=== PATIENT | male | born 1965 | race Caucasian/White ===

== ENCOUNTER 2019-05-16 10:55 | Inpatient (IN) | payer OTHER ==
[2019-05-16 12:56] VITALS: BMI 26.4
--- NOTE | 2019-05-16 16:58 | HP ---
CIWA Score - Admission Criteria [facility] Guidelines: Admission for Medically Managed Detox: Requires at least one of the followin. CIWA greater than 12 2. Seizures within the past 24 hours 3. Delirium tremens within the past 24 hours 4. Hallucinations within the past 24 hours 5. Acute intervention needed for co occurring medical disorder 6. Acute intervention needed for co occurring psychiatric disorder 7. Severe withdrawal that cannot be handled at a lower level of care (continued vomiting, continued diarrhea, abnormal vital signs) requiring intravenous medication and/or fluids 8. Admission ROS [facility] - HPI Chief Complaint: cocaine rehab Allergies/Adverse Reactions: Allergies Allergy/AdvReac Type Severity Reaction Status Date / Time No Known Allergies Allergy Verified 05/16/19 12:51 History of Present Illness: Patient is a 53 yo M with a PMHx of Asthma, depression, anxiety, presenting here cocaine rehab. smokes 10 bags of cocaine daily (100 dollars) for 3 months. Says he smoked cocaine in 1980 for about a year and has been clean since then. Never did rehab before. Denies other drugs. smokes 10 cigarettes a day. unemployed. lives with his sister in an apartment. - Ebola screening Have you traveled outside of the country in the last 21 days: No Have you had contact with anyone from an Ebola affected area: No - Review of Systems Constitutional: Loss of Appetite, Unintentional Wgt. Loss Respiratory: denies: Cough, Shortness of Breath Cardiac: denies: Chest Pain Patient History - Smoking Cessation Smoking history: Current every day smoker Initiated information on smoking cessation: Yes 'Breaking Loose' booklet given: 05/16/19 - Substances abused Crack Substance route: Smoking Frequency: Daily Amount used: 10BAGS Age of first use: 18 Date of last use: 05/15/19 Family Disease History - Family Disease History Family History: Denies Admission Physical Exam [facility] - Vital Signs Vital Signs: Vital Signs - 24 hr 05/16/19 12:46 Temperature 97.3 F L Pulse Rate 76 Respiratory 18 Rate Blood Pressure 126/85 - Physical General Appearance: Yes: No Apparent Distress HEENTM: Yes: Normocephalic Respiratory: Yes: No Respiratory Distress, No Accessory Muscle Use Cardiology: Yes: Regular Rhythm, Regular Rate Abdominal: Yes: Non Tender, Soft Extremities: No: Swelling - Diagnostic (1) Cocaine abuse Current Visit: Yes Status: Acute (2) Tobacco abuse Current Visit: Yes Status: Acute Cleared for Admission S - Detox or Rehab [facility] Level of Care: Medically Managed Breathalyzer - Breathalyzer Breathalyzer: 0 Urine Drug Screen - Test Device Lot number: [id number] Expiration date: 01/27/21 - Control Is test valid?: Yes - Results Drug screen NEGATIVE: No Urine drug screen results: TONO-Cocaine Inpatient Rehab Admission - Rehab Decision to Admit Inpatient rehab admission?: Yes - Initial Determination Are CD services needed?: Yes Free of communicable disease: Yes Not in need of hospitalization: Yes - Rehab Admission Criteria Previous failed treatment: No Poor recovery environment: No Comorbidities: No Lacks judgement: No Patient is meeting Inpatient Rehab admission criteria:: Yes
--- NOTE | 2019-05-16 17:03 | PN ---
Teaching Attending Note Name of Resident: Ce Glez ATTENDING PHYSICIAN STATEMENT I saw and evaluated the patient. I reviewed the resident's note and discussed the case with the resident. I agree with the resident's findings and plan as documented. SUBJECTIVE: 53 yo with cocaine use disorder, says he has only been using for 3months, has not been using since 1980. Wants help to stop using OBJECTIVE: Vital Signs - 24 hr 05/16/19 12:46 Temperature 97.3 F L Pulse Rate 76 Respiratory 18 Rate Blood Pressure 126/85 alert and oriented ASSESSMENT AND PLAN: cocaine use disorder-- rehab pt is motivated to stop
[2019-05-16] MEDS ORDERED: guaiFENesin 200 MG/10 ML 10 ML UNIT-DOSE CUPS PO PRN (17:09)
[2019-05-16] MEDS ORDERED: MAGNESIUM HYDROX 2400MG/30ML ORAL SUSPENSION 30 ML CUP PO PRN (17:09)
[2019-05-16] MEDS ORDERED: ACETAMINOPHEN 325 MG TABLET (FP) PO PRN (17:09)
[2019-05-16] MEDS ORDERED: MENTHOL/PHENOL 1 EACH UD MM PRN (17:09)
[2019-05-16] MEDS ORDERED: MAGNESIUM CITRATE 300 ML BOTTLE PO PRN (17:09)
[2019-05-16] MEDS ORDERED: P-EPHED 60MG/TRIPROLIDI 2.5MG TABLET PO PRN (17:09)
[2019-05-16] MEDS ORDERED: IBUPROFEN 400 MG TABLET (FP) PO PRN (17:09)
[2019-05-16] MEDS: NICOTINE 14 MG/24 HOURS TOPICAL PATCH TD SCH (21:45)
[2019-05-16] MEDS: THIAMINE HCL 100 MG TABLET (FP) PO SCH (21:46)
[2019-05-17] MEDS: NICOTINE 14 MG/24 HOURS TOPICAL PATCH TD SCH (09:44)
[2019-05-17] MEDS: PRENATAL VITAMINS W/ FOLIC ACID TABLET (FP) PO SCH (09:44)
[2019-05-17] MEDS: LIDOCAINE 5% TOPICAL PATCH TP SCH (10:44)
[2019-05-17 11:34] LABS: PH,URINE 5.5 (5.0-8.0); URINE APPEARANCE CLEAR; URINE BILIRUBIN NEGATIVE (NEGATIVE); URINE COLOR YELLOW; URINE GLUCOSE (UA) NEGATIVE (NEGATIVE); URINE KETONE NEGATIVE (NEGATIVE); URINE LEUK ESTERASE NEGATIVE (NEGATIVE); URINE NITRITE NEGATIVE (NEGATIVE); URINE PROTEIN NEGATIVE (NEGATIVE); URINE UROBILINOGEN 0.2 mg/dL (0.2-1.0)
[2019-05-17 11:39] LABS: HEMATOCRIT 46.7 % (35.4-49); HEMOGLOBIN 15.6 GM/dL (11.7-16.9); MCH 31.2 pg (25.7-33.7); MCHC 33.4 g/dl (32.0-35.9); MEAN CELL VOLUME 93.2 fl (80-96); MEAN PLT VOLUME 10.3 fl (7.5-11.1); PLATELET COUNT 189 K/MM3 (134-434); RDW 13.5 % (11.9-15.9); WHITE BLOOD COUNT 6.1 K/mm3 (4.0-10.0)
[2019-05-17 11:45] LABS: ALBUMIN 3.5 g/dl (3.4-5.0); BILIRUBIN,TOTAL 0.3 mg/dL (0.2-1); CALCIUM 9.3 mg/dL (8.5-10.1); CREATININE 1.2 mg/dL (0.55-1.3); POTASSIUM 3.7 mmol/L (3.5-5.1); TOT PROT 6.8 g/dl (6.4-8.2)
[2019-05-17] MEDS: MELATONIN 5 MG TABLETS PO PRN (21:33)
[2019-05-17] MEDS: LIDOCAINE PATCH REMOVAL MC SCH (21:33)
[2019-05-17] MEDS: THIAMINE HCL 100 MG TABLET (FP) PO SCH (21:33)
[2019-05-18] MEDS: LIDOCAINE 5% TOPICAL PATCH TP SCH (10:48)
[2019-05-18] MEDS: PRENATAL VITAMINS W/ FOLIC ACID TABLET (FP) PO SCH (10:48)
[2019-05-18] MEDS: NICOTINE 14 MG/24 HOURS TOPICAL PATCH TD SCH (10:48)
[2019-05-18] MEDS: LIDOCAINE PATCH REMOVAL MC SCH (21:05)
[2019-05-18] MEDS: THIAMINE HCL 100 MG TABLET (FP) PO SCH (21:05)
[2019-05-18] MEDS: MELATONIN 5 MG TABLETS PO PRN (21:05)
[2019-05-18] MEDS ORDERED: PT OWN MED DRAWER 7, Y5N ONE (23:29)
[2019-05-19] MEDS: NICOTINE 14 MG/24 HOURS TOPICAL PATCH TD SCH (09:38)
[2019-05-19] MEDS: LIDOCAINE 5% TOPICAL PATCH TP SCH (09:38)
[2019-05-19] MEDS: PRENATAL VITAMINS W/ FOLIC ACID TABLET (FP) PO SCH (09:38)
[2019-05-19] MEDS: LIDOCAINE PATCH REMOVAL MC SCH (21:32)
[2019-05-19] MEDS: THIAMINE HCL 100 MG TABLET (FP) PO SCH (21:32)
[2019-05-19] MEDS: MELATONIN 5 MG TABLETS PO PRN (21:33)
[2019-05-20] MEDS: PRENATAL VITAMINS W/ FOLIC ACID TABLET (FP) PO SCH (10:52)
[2019-05-20] MEDS: LIDOCAINE 5% TOPICAL PATCH TP SCH (10:52)
[2019-05-20] MEDS: NICOTINE 14 MG/24 HOURS TOPICAL PATCH TD SCH (10:52)
[2019-05-20] MEDS: LIDOCAINE PATCH REMOVAL MC SCH (21:03)
[2019-05-20] MEDS: THIAMINE HCL 100 MG TABLET (FP) PO SCH (21:03)
[2019-05-20] MEDS: MELATONIN 5 MG TABLETS PO PRN (21:04)
[2019-05-21] MEDS: NICOTINE 14 MG/24 HOURS TOPICAL PATCH TD SCH (09:27)
[2019-05-21] MEDS: LIDOCAINE 5% TOPICAL PATCH TP SCH (09:27)
[2019-05-21] MEDS: PRENATAL VITAMINS W/ FOLIC ACID TABLET (FP) PO SCH (09:43)
[2019-05-21] MEDS: THIAMINE HCL 100 MG TABLET (FP) PO SCH (21:30)
[2019-05-21] MEDS: MELATONIN 5 MG TABLETS PO PRN (21:30)
[2019-05-21] MEDS: LIDOCAINE PATCH REMOVAL MC SCH (21:30)
[2019-05-22] MEDS: PRENATAL VITAMINS W/ FOLIC ACID TABLET (FP) PO SCH (09:40)
[2019-05-22] MEDS: NICOTINE 14 MG/24 HOURS TOPICAL PATCH TD SCH (09:40)
[2019-05-22] MEDS: LIDOCAINE 5% TOPICAL PATCH TP SCH (09:40)
[2019-05-22] MEDS: THIAMINE HCL 100 MG TABLET (FP) PO SCH (21:01)
[2019-05-22] MEDS: LIDOCAINE PATCH REMOVAL MC SCH (21:02)
[2019-05-22] MEDS: MELATONIN 5 MG TABLETS PO PRN (21:02)
[2019-05-23] MEDS: MAG HYDROX/AL HYDROX/SIMETH 30 ML UNIT-DOSE CUP PO PRN (06:04)
[2019-05-23] MEDS: LIDOCAINE 5% TOPICAL PATCH TP SCH (09:04)
[2019-05-23] MEDS: LOPERAMIDE HCL 2 MG CAPSULE PO PRN ×2 (09:04→16:42)
[2019-05-23] MEDS: PRENATAL VITAMINS W/ FOLIC ACID TABLET (FP) PO SCH (09:04)
[2019-05-23] MEDS: NICOTINE 14 MG/24 HOURS TOPICAL PATCH TD SCH (09:51)
[2019-05-23] MEDS: LIDOCAINE PATCH REMOVAL MC SCH (21:41)
[2019-05-23] MEDS: THIAMINE HCL 100 MG TABLET (FP) PO SCH (21:41)
[2019-05-23] MEDS: MELATONIN 5 MG TABLETS PO PRN (21:41)
[2019-05-24] MEDS: MAG HYDROX/AL HYDROX/SIMETH 30 ML UNIT-DOSE CUP PO PRN (01:23)
[2019-05-24] MEDS: PRENATAL VITAMINS W/ FOLIC ACID TABLET (FP) PO SCH (10:24)
[2019-05-24] MEDS: LIDOCAINE 5% TOPICAL PATCH TP SCH (10:24)
[2019-05-24] MEDS: NICOTINE 14 MG/24 HOURS TOPICAL PATCH TD SCH (10:24)
[2019-05-24] MEDS: THIAMINE HCL 100 MG TABLET (FP) PO SCH (21:03)
[2019-05-24] MEDS: MELATONIN 5 MG TABLETS PO PRN (21:03)
[2019-05-24] MEDS: LIDOCAINE PATCH REMOVAL MC SCH (21:03)
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
--- NOTE | 2019-05-25 07:29 | PN ---
S Progress Note Note: CLIENT SEEN THIS MORNING C/O PAIN AND SWELLING TO R THUMB. R THUMB SWOLLEN WITH LIMITED ROM DUE TO PAIN.TENDERNESS TO TOUCH, SOME ECCHYMOSIS NOTED. R THUMB INURY P- MOTRIN ICE PACK ORDERED TRANSFER TO ER FOR R THUMB XRAY
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
[2019-05-25] MEDS: PRENATAL VITAMINS W/ FOLIC ACID TABLET (FP) PO SCH (10:07)
[2019-05-25] MEDS: BACITRACIN 15 GM TUBE TOPICAL OINTMENT TP SCH (10:08)
[2019-05-25] MEDS: LIDOCAINE 5% TOPICAL PATCH TP SCH (10:08)
[2019-05-25] MEDS: NICOTINE 14 MG/24 HOURS TOPICAL PATCH TD SCH (10:09)
[2019-05-25] MEDS: MELATONIN 5 MG TABLETS PO PRN (21:20)
[2019-05-25] MEDS: LIDOCAINE PATCH REMOVAL MC SCH (21:20)
[2019-05-25] MEDS: THIAMINE HCL 100 MG TABLET (FP) PO SCH (21:20)
[2019-05-26] MEDS: NICOTINE 14 MG/24 HOURS TOPICAL PATCH TD SCH (11:38)
[2019-05-26] MEDS: BACITRACIN 15 GM TUBE TOPICAL OINTMENT TP SCH (11:38)
[2019-05-26] MEDS: PRENATAL VITAMINS W/ FOLIC ACID TABLET (FP) PO SCH (11:39)
[2019-05-26] MEDS: LIDOCAINE 5% TOPICAL PATCH TP SCH (11:39)
[2019-05-26] MEDS: MAG HYDROX/AL HYDROX/SIMETH 30 ML UNIT-DOSE CUP PO PRN (16:42)
[2019-05-26] MEDS: THIAMINE HCL 100 MG TABLET (FP) PO SCH (21:01)
[2019-05-26] MEDS: LIDOCAINE PATCH REMOVAL MC SCH (21:01)
[2019-05-26] MEDS: MELATONIN 5 MG TABLETS PO PRN (21:01)
[2019-05-27] MEDS: LIDOCAINE 5% TOPICAL PATCH TP SCH (10:00)
[2019-05-27] MEDS: NICOTINE 14 MG/24 HOURS TOPICAL PATCH TD SCH (10:01)
[2019-05-27] MEDS: PRENATAL VITAMINS W/ FOLIC ACID TABLET (FP) PO SCH (10:01)
[2019-05-27] MEDS: BACITRACIN 15 GM TUBE TOPICAL OINTMENT TP SCH (10:27)
[2019-05-27] MEDS: MELATONIN 5 MG TABLETS PO PRN (21:47)
[2019-05-27] MEDS: THIAMINE HCL 100 MG TABLET (FP) PO SCH (21:47)
[2019-05-27] MEDS: LIDOCAINE PATCH REMOVAL MC SCH (21:47)
[2019-05-28] MEDS: PRENATAL VITAMINS W/ FOLIC ACID TABLET (FP) PO SCH (10:05)
[2019-05-28] MEDS: BACITRACIN 15 GM TUBE TOPICAL OINTMENT TP SCH (10:06)
[2019-05-28] MEDS: NICOTINE 14 MG/24 HOURS TOPICAL PATCH TD SCH (10:06)
[2019-05-28] MEDS: LIDOCAINE 5% TOPICAL PATCH TP SCH (10:06)
[2019-05-28] MEDS: MELATONIN 5 MG TABLETS PO PRN (21:11)
[2019-05-28] MEDS: LIDOCAINE PATCH REMOVAL MC SCH (21:11)
[2019-05-28] MEDS: THIAMINE HCL 100 MG TABLET (FP) PO SCH (21:11)
[2019-05-29 06:55] VITALS: BP 133/73; PULSE 67; TEMP 97.1
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
[2019-05-29] MEDS: NICOTINE 14 MG/24 HOURS TOPICAL PATCH TD SCH (09:19)
[2019-05-29] MEDS: BACITRACIN 15 GM TUBE TOPICAL OINTMENT TP SCH (09:19)
[2019-05-29] MEDS: LIDOCAINE 5% TOPICAL PATCH TP SCH (09:19)
[2019-05-29] MEDS: PRENATAL VITAMINS W/ FOLIC ACID TABLET (FP) PO SCH (09:19)
== END 2019-05-29 12:20 | disposition home or self-care (01) | DRG 772 ==
LOC: YASAS 10:55 → Y3W 17:33
PROVIDERS: ADMIT Neuromusculoskeletal Medicine & OMM; ATTEND Neuromusculoskeletal Medicine & OMM
PROC: HZ42ZZZ Group Counseling for Substance Abuse Treatment, Cognitive-Behavioral (ICD-10-PCS; principal; 2019-05-16)
DX: F14.20 Cocaine dependence, uncomplicated (principal); F17.210 Nicotine dependence, cigarettes, uncomplicated; S69.81XA Other specified injuries of right wrist, hand and finger(s), initial encounter; S80.212A Abrasion, left knee, initial encounter; Y04.0XXA Assault by unarmed brawl or fight, initial encounter; W18.39XA Other fall on same level, initial encounter; Y93.9 Activity, unspecified; Y92.239 Unspecified place in hospital as the place of occurrence of the external cause
CPT/HCPCS: 36415; 71046-TC-FY; 73140-TC-RT-FY; 80053; 81003; 85027; 86480; 86593